=== PATIENT | female | born 1975 | race Caucasian/White ===

== ENCOUNTER 2021-06-24 15:17 | Emergency (ER) | payer BC ==
--- OUTSIDE RECORDS SUMMARY | 2021-06-24 15:20 | XMS REPORT | Continuity of Care Document ---
:1975 Author Organization [facility] t Address [address] [place] [address] Care Team Providers Name Role Phone Rosenda Borrero NP Primary Care Physician Marge RN, M Attending Clinician Unavailable Manolo DIASP Attending Clinician Unknown Attending Clinician Unavailable UNKNOWN Attending Clinician Unavailable BENNETT Attending Clinician Unavailable Bennett AGUIAR Attending Clinician Doctor Unassigned, Name Attending Clinician Unavailable Iftikhar AGUIAR Attending Clinician Singer COHN Attending Clinician Nurse, Urgent Care Attending Clinician Unavailable IFTIKHAR Attending Clinician Unavailable Referred Admitting Clinician Unavailable Payers Payer Name Policy Type Policy Number Effective Date Expiration Date Monty samuels [facility] [id number] 2020 00:00:00 SELECT Problems Condition Condition Condition Status Onset Resolution Last Treating Co mments Source Name Details Category Date Date Treatment Clinician Date No known No known Disease Unive rs active active ity of problems problems [facility] Allergies, Adverse Reactions, Alerts Allergy Allergy Status Severity Reaction(s) Onset Inactive Treating Comm ents Source Name Type Date Date Clinician No Known DA Active U 2019-0 [facility]ie 12-[facility] s 00:00: [address] No Known DA Active U 2020-0 [facility] Allergie 12-27 [place] s 00:00: [address] NO KNOWN Drug Active Univers ALLERGIE Class ity of S [facility] Social History Social Habit Start Date Stop Date Quantity Comments Source Exposure to Not sure [facility] SARS-CoV-2 (event) Medica l Branch Cigarettes smoked 2020-12-01 2020-12-01 [facility] current (pack per 00:00:00 00:00:00 Medical Branch day) - Reported Tobacco use and 2020-12-01 2020-12-01 Never used [facility] exposure 00:00:00 00:00:00 Medical Branch Sex Ass[birth year] [facility] 00:00:00 00:00:00 Medical Branch Smoking Status Start Date Stop Date Source Current every day smoker 2020-12-01 00:00:00 Uni versity [facility] Unknown if ever smoked [facility] Medications Ordered Filled Start Stop Current Ordering Indication Dosage Frequency Signature Comments Components Source Medication Medication Date Date Medication? Clinician (SIG) Name Name amoxicillin Yes TAKE ONE Un heriberto -clavulanat 7-19 (1) ity of e 875-125 00:00: TABLET(S) Nickolas as mg per 00 BY MOUTH Medical tablet TWICE A Branch DAY FOR 10 DAYS. fluticasone Yes INSTILL Uni vers propionate 7-19 TWO (2) ity of 50 00:00: SPRAY(S) [place] mcg/actuati 00 INTO EACH Med ical on nasal NOSTRIL Branch spray ONCE A DAY. amoxicillin Yes TAKE ONE Un heriberto -clavulanat 7-19 (1) ity of e 875-125 00:00: TABLET(S) Nickolas as mg per 00 BY MOUTH Medical tablet TWICE A Branch DAY FOR 10 DAYS. fluticasone Yes INSTILL Uni vers propionate 7-19 TWO (2) ity of 50 00:00: SPRAY(S) [place] mcg/actuati 00 INTO EACH Med ical on nasal NOSTRIL Branch spray ONCE A DAY. aspirin Yes Univers (ASPIR-LOW 7-16 ity of ORAL) 00:00: Medical Branch aspirin Yes Univers (ASPIR-LOW 7-16 ity of ORAL) 00:00: [place] [facility] aspirin 2021-0 Yes Univers (ASPIR-LOW 7-16 ity of ORAL) 00:00: Medical Branch aspirin 2020-0 Yes Univers (ASPIR-LOW 7-16 ity of ORAL) 00:00: Medical Branch aspirin 2020-0 Yes Univers (ASPIR-LOW 7-16 ity of ORAL) 00:00: 00 Medical Branch loratadine 2020-0 Yes 10mg Take 10 mg U nivers (CLARITIN) 5-04 by mouth. ity of 10 mg 00:00: [place] tablet 00 Medical Branch loratadine 2020-0 Yes 10mg Take 10 mg U nivers (CLARITIN) 5-04 by mouth. ity of 10 mg 00:00: [place] tablet 00 Medical Branch loratadine 2020-0 Yes 10mg Take 10 mg U nivers (CLARITIN) 5-04 by mouth. ity of 10 mg 00:00: [place] tablet 00 Medical Branch loratadine 2020-0 Yes 10mg Take 10 mg U nivers (CLARITIN) 5-04 by mouth. ity of 10 mg 00:00: [place] tablet 00 Medical Branch loratadine 2019-0 Yes 10mg Take 10 mg U nivers (CLARITIN) 5-04 by mouth. ity of 10 mg 00:00: [place] tablet 00 Medical [place] Vital Signs Vital Name Observation Time Observation Value Comments Source Systolic blood 2021-02-06 00:48:00 124 mm[Hg] Univer sity of pressure [facility] Diastolic blood 2021-02-06 00:48:00 80 [facility]Hg[facility] 2021-02-06 00:48:00 80 /min [facility] Body temperature 2021-02-06 00:48:00 36.78 Mitzi [facility] Respiratory rate 2021-02-06 00:48:00 18 /min [facility] Body weight 2021-02-06 00:48:00 91.627 kg [facility] Oxygen saturation in 2021-02-06 00:48:00 98 /min [facility] Arterial blood by [facility] Pulse oximetry Branch Systolic blood 2020-12-01 13:54:00 121 mm[Hg] Univer sity of [facility] Diastolic blood 2020-12-01 13:54:00 84 mm[Hg] Unive rsity of pressure [place] [facility] Heart rate 2020-12-01 13:54:00 81 /min [facility] [place] [facility] Body weight 2020-12-01 13:54:00 91.627 kg [facility]i ty [facility] [place] [facility] Oxygen saturation in 2020-12-01 13:54:00 99 /min University of Arterial blood by [facility] Pulse oximetry Branch Systolic blood 2020-11-07 04:00:00 124 mm[Hg] Univer sity of pressure [place] [facility] Diastolic blood 2020-11-07 04:00:00 85 mm[Hg] Unive rsity of pressure [place] [facility] Heart rate 2020-11-07 04:00:00 63 /min [facility] [place] [facility] Respiratory rate 2020-11-07 04:00:00 18 /min Univ ersity of [place] [facility] Oxygen saturation in 2020-11-07 04:00:00 97 /min University of Arterial blood by [facility] Pulse oximetry Branch Body temperature 2020-11-07 01:12:00 36.78 Mitzi Univ [facility] [place] [facility] Body weight 2020-11-07 01:12:00 92.08 kg [facility]i ty [facility] [place] [facility] Systolic blood 2020-11-07 01:06:00 154 mm[Hg] Univer sity of pressure [place] [facility] Diastolic blood 2020-11-07 01:06:00 92 mm[Hg] Unive rsity of pressure [place] [facility] Heart rate 2020-11-07 01:04:00 72 /min [facility] [place] [facility] Body temperature 2020-11-07 01:04:00 36.78 Mitzi Univ ers[facility] [place] [facility] Respiratory rate 2020-11-07 01:04:00 18 /min Univ ersity of [place] [facility] Oxygen saturation in 2020-11-07 01:04:00 100 /min University of Arterial blood by [facility] Pulse oximetry Branch Procedures Procedure Date / Time Performed Performing Clinician [facility] e CONSENT/REFUSAL FOR 2020-12-01 13:43:53 Doctor Unassigned, No Un [facility] DIAGNOSIS AND Name Medical Branch TREATMENT XR CHEST 1 VW 2020-11-07 03:18:00 Romario Pro o f [place] [facility] LIPASE 2020-11-07 02:52:00 Singer [facility] TROPONIN I 2020-11-07 02:52:00 Singer [facility] COMP. METABOLIC PANEL 2020-11-07 02:52:00 [facility] ([id number]) [facility] CBC WITH DIFF 2020-11-07 02:52:00 Singer [facility] N-TERMINAL PRO-BNP 2020-11-07 02:52:00 Romario Pro [facility] [place] [facility] y of [facility] NOTICE OF PRIVACY 2020-11-07 01:04:48 Doctor Unassigned, No Univ ers[facility] PRACTICES Name [facility] Branch CONSENT/REFUSAL FOR 2020-11-07 01:03:18 Doctor Unassigned, No [facility] DIAGNOSIS AND Name [facility] TREATMENT Encounters Start End Encounter Admission Attending Care Care Encounter Source Date/Time Date/Time Type Type Clinicians Facility Department ID 2021-02-23 Emergency [facility] [id number] Univers 08:33:41 [facility] 2019-12-28 Inpatient [facility] ER [id number] [facility] 12:54:00 [id number] [facility] 2021-02-06 2021-02-06 Telephone Shantal Bird [id number] Univers 00:00:00 00:00:00 SUZE [id number] it y of [facility] [id number] Nickolas as [phone] [place] [id number] Branch 2021-02-05 2021-02-05 Urgent Carmen French [facility] [id number] Univers 19:46:25 20:21:42 Care Unknown, Attending Health [id number] ity [facility] [id number] Nickolas as Abram?Blea [phone] Ri heydi landry [address] [place] [address] Medical Office Building 2021-02-05 2021-02-05 Outpatient [facility] [id number] Univers 20:00:00 20:00:00 [id number] ity [facility] 2021-02-05 2021-02-05 Outpatient R UNKNOWN, [facility] [id number] Univers 20:00:00 20:00:00 ATTENDING ity [facility] 2021-01-13 2021-01-13 Outpatient R BENNETT, [facility] [id number] Univers 13:00:00 13:00:00 KISHORE [id number] ity o [facility] [place] [facility] 2021-01-10 2021-01-10 Outpatient R [facility] [id number] Univers 14:00:00 14:00:00 [id number] ity [facility] 2021-01-10 2021-01-10 Outpatient R [facility] [id number] Univers 14:00:00 14:00:00 ity [facility] 2020-12-23 2020-12-23 Outpatient R BENNETT, [facility] [id number] Univers 14:20:00 14:20:00 KISHORE [id number] [facility] 2020-12-23 2020-12-23 Outpatient R BENNETT, [facility] [id number] Univers 14:20:00 14:20:00 MICHAELESAU [facility] 2020-12-01 2020-12-01 Office Bennett, [facility] [id number] Univers 08:45:16 09:08:01 Visit Kishore Herr [id number] ity [id number] [phone] [address] 2020-12-01 2020-12-01 Outpatient R BENNETT, [facility] [id number] Univers 08:40:00 08:40:00 KISHORE [id number] ity o [facility] [place] [facility] 2020-12-01 2020-12-01 Outpatient R BENNETT, [facility] [id number] Univers 08:40:00 08:40:00 [facility]ASH[facility]DA [facility] 2020-12-01 2020-12-01 Orders Doctor GAFFNEY [id number] Univers 00:00:00 00:00:00 Only Unassigned, SUZE [id number] ity of [place] [facility] [id number] Nickolas as [phone] [address] 2020-12-01 2020-12-01 Letter [facility] 1.2.840.114 [id number] Univers 00:00:00 00:00:00 (Out) Kishore Herr [id number] [id number] [id number] Ri dical nal 059 Branch Building 2020-11-06 2020-11-06 Emergency Iftikhar [facility] 1.2.840.114 [id number] Univers 20:09:00 23:59:00 ProRomario [id number] it[id number] [phone] [facility] 084 [place] 2020-11-06 2020-11-06 Nurse [facility] 1.2 .840.114 [id number] Univers 20:08:28 20:23:28 Visit Iftikhar Simone [facility] [id number] ity [facility] [id number] Nickolas as Professio [phone] [facility] 044 Branch Office Building One 2020-11-06 2020-11-06 Outpatient R IFTIKHAR [facility] [id number] Univers 20:00:00 20:00:00 SIMONE [facility] 2020-11-06 2020-11-06 Outpatient [facility] [id number] Univers 20:00:00 20:00:00 [id number] [facility] Results Test Description Test Time Test Comments Results Result Comments Source TROPONIN I 2020-11-07 03:39:40 Test Item Value Reference Range Interpretation Comme nts TROPONIN I (test code = 0.002 ng/mL See_Comment [Au tomated message] The [id number]) system which ge nerated this result tra nsmitted reference range : <=0.034. The reference r richard was not used to int erpret this result as normal/abnormal . ONOFRE (test code = ONOFRE) Reference (Normal) Range (defined by the 99th percentile reference limit): <= 0.034 ng/mL Note: Cardiac troponin begins to rise 3-4 hours after the onset of ischemia. Repeat in 4-6 hours if the sample was drawn within 3-4 hours of the onset of the symptom and found normal. Diagnosis of myocardial injury is made with acute changes in cTn concentrations with at least one serial sample above the 99th percentile upper reference limit (URL), taken together with the patient's clinical presentation. Biotin has been reported to cause a negative bias, interpret results relative to patient's use of biotin. Lab Interpretation Normal (test code = 55939-7) [id number] 03:36:24 Test Item Value Reference Range Interpretation Comments NT-proBNP (test code 92 pg/mL See_Comment [Autom ated = 1606030079) message] The system which generated this result transmitted reference range : <=125. The reference range was not used to interpret this result as normal/abnormal . ONOFRE (test code = ONOFRE) Biotin has been reported to cause a negative bias, interpret results relative to patient's use of biotin. Lab Interpretation Normal (test code = 83302-8) [facility] (59646)2020-11-07 03:30:00 Test Item Value Reference Range Interpretation Comments NA (test code = 137 mmol/L 135-145 7773125741) K (test code = 3.7 mmol/L 3.5-5.0 9220380097) CL (test code = 104 mmol/L 98-108 7303330105) CO2 TOTAL (test code 29 mmol/L 23-31 = 9398438738) AGAP (test code = 2-16 9306859820) BUN (test code = 18 mg/dL 7-23 6926895306) GLUCOSE (test code = 90 mg/dL 70-110 6215674067) CREATININE (test code 0.82 mg/dL 0.50-1.04 = 8131452690) TOTAL BILI (test code 0.4 mg/dL 0.1-1.1 = 0541622846) CALCIUM (test code = 9.5 mg/dL 8.6-10.6 8859289284) T PROTEIN (test code 7.1 g/dL 6.3-8.2 = 6152408048) ALBUMIN (test code = 4.3 g/dL 3.5-5.0 6007901842) ALK PHOS (test code = 53 U/L 34-122 2687143029) ALTv (test code = 20 U/L 5-35 1742-6) AST(SGOT) (test code 25 U/L 13-40 = 1676652865) eGFR (test code = mL/min/1.73m2 8054895046) ONOFRE (test code = ONOFRE) Association of Glomerular Filtration Rate (GFR) and Staging of Kidney Disease* + + +- +| GFR (mL/min/1.73 m2) ?| With Kidney Damage ?| ?Without Kidney Damage+ ------+ ----+ ------+| ?>90 ?| ?Stage one ?| ? Normal ?+ -+ + -+| ?60-89 ?| ?Stage two ?| ? Decreased GFR ? + + +- +| ?30-59 ?| ?Stage three ?| ? Stage three ? + + +- +| ?15-29 ?| ?Stage four ? | ? Stage four ?+ -+ + -+| ?<15 (or dialysis) ? ?| ?Stage five ? | ? Stage five ?+ -+ + -+ *Each stage assumes the associated GFR level has been in effect for at least three months. ?Stages 1 to 5, with or without kidney disease, indicate chronic kidney disease. Notes: Determination of stages one and two (with eGFR >59mL/min/1.73 m2) requires estimation of kidney damage for at least three months as defined by structural or functional abnormalities of the kidney, manifested by either:Pathological abnormalities or Markers of kidney damage (including abnormalities in the composition of the blood or urine or abnormalities in imaging tests). [facility] 03:29:40 Test Item Value Reference Range Interpretation Comments LIPASE (test code = 5846552496) 76 U/L 0-220 Lab Interpretation (test code = Normal 74060-1) General acute hospital WITH [id number] 03:17:40 Test Item Value Reference Range Interpretation Comments WBC (test code = See_Comment [Automated message] 6690-2) The system [employer] generated this result transmitted ref erence range: 4.30 - 1 1.10 10*3/?L. The re ference range was not u sed to interpret this result as normal/abnor mal. RBC (test code = See_Comment [Automated message] 789-8) The system [employer] generated this result transmitted ref erence range: 3.93 - 5 .25 10*6/?L. The re ference range was not u sed to interpret this result as normal/abnor mal. HGB (test code = 13.1 g/dL 11.6-15.0 718-7) HCT (test code = 39.4 % 35.7-45.2 4544-3) MCV (test code = 94.3 fL 80.6-95.5 787-2) MCH (test code = 31.3 pg 25.9-32.8 785-6) MCHC (test code = 33.2 g/dL 31.6-35.1 786-4) RDW-SD (test code 44.6 fL 39.0-49.9 = 19937-8) RDW-CV (test code 12.9 % 12.0-15.5 = 788-0) PLT (test code = See_Comment [Automated message] 777-3) The system [employer] generated this result transmitted ref erence range: 166 - 35 8 10*3/?L. The re ference range was not u sed to interpret this result as normal/abnor mal. MPV (test code = 12.2 fL 9.5-12.9 60069-6) NRBC/100 WBC (test See_Comment [Automat ed message] code = 3038856043) The syste m which generated this result transmitted ref erence range: 0.0 - 10 .0 /100 WBCs. The refer ence range was not u sed to interpret this result as normal/abnor mal. NRBC x10^3 (test <0.01 See_Comment [Automated message] code = 3602853965) The syste m which generated this result transmitted ref erence range: 10*3/?L. The reference range was not used to interpr et this result as normal/abnormal . GRAN MAT (NEUT) % 49.0 % (test code = 770-8) IMM GRAN % (test 0.30 % code = 2724952385) LYMPH % (test code 41.8 % = 736-9) MONO % (test code 6.4 % = 5905-5) EOS % (test code = 2.2 % 713-8) BASO % (test code 0.3 % = 706-2) GRAN MAT 3.11 10*3/uL 1.88-7.09 x10^3(ANC) (test code = 7863689418) IMM GRAN x10^3 <0.03 0.00-0.06 (test code = 9720047798) LYMPH x10^3 (test 2.66 10*3/uL 1.32-3.29 code = 731-0) MONO x10^3 (test 0.41 10*3/uL 0.33-0.92 code = 742-7) EOS x10^3 (test 0.14 10*3/uL 0.03-0.39 code = 711-2) BASO x10^3 (test <0.03 0.01-0.07 code = 704-7) [facility]- XR FOOT 3+V [id number] 14:00:00 Patient Name: PATY JEAN Unit No: [id number] EXAMS: CPT CODE: [id number] XR FOOT 3+[place] [address] Reason: L foot pain and swelling, R/O fob Indication: Foot pain FINDINGS: 3 views of the left foot do not demonstrate a fracture. No dislocation or radiopaque foreign body is identified. IMPRESSION: Negative at 1400 Reported and signed by:Matthew Gonzalez MD CC: Summer Hobbs EDGE TRIMMER; Carloz Rush MD Technologist: Satish BARAKAT Trscrpt Dt/ (1400)James Orig Print D/T: S: 12/28/2019 (1403) [place] NAME: PATY JEAN [address] [place] [address] PHYS: IRISDA. - Carloz Rush MD [address] : 1975AGE: 44 SEX: F [place], [place] [address] LOC: D.PER PHONE #: [phone] EXAM DATE: 12/28/2019 STATUS: REG ER FAX #: RAD NO: DC Dt: PAGE 1 Signed Report"
[2021-06-24] MEDS ORDERED: ACETAMINOPHEN 500 MG TAB ONE (16:09)
[2021-06-24] MEDS ORDERED: NA CHLORIDE 0.9% 1,000 ML ONE (16:50)
[2021-06-24] MEDS ORDERED: CLINDAMYCIN 600MG/D5W 600 MG/50 ML BAG IV ONE (17:06)
[2021-06-24 17:13] LABS: Protime INR 1.26
[2021-06-24 17:27] LABS: Absolute Lymphocytes (CBC) 0.4 K/uL (0.7-4.9); Hematocrit 38.9 % (36.0-45.0); Lymphocytes % 3.6 % (15.3-44.8); MPV 9.5 fL (7.6-11.3); RBC Red Blood Cell Count 4.22 M/uL (3.86-4.86)
[2021-06-24 17:29] LABS: Potassium 3.4 mmol/L (3.5-5.1)
[2021-06-24] MEDS ORDERED: POTASSIUM 25 MEQ EFFERV TAB ONE (17:46)
[2021-06-24 18:17] LABS: SARS-COV-2 RT PCR NEGATIVE (NEGATIVE)
--- NOTE | 2021-06-24 18:32 | EDPHYS ---
Physician Documentation [facility] Name: Courtney oJya Age: 46 yrs Sex: Female : 1975 Arrival Date: 06/24/2021 Time: 15:21 Bed 12 Private MD: ED Physician Jorje Pappas HPI: 06/24 16:05 This 46 yrs old Female presents to ER via Ambulatory with complaints of Fever. cp 16:05 The patient reports fever, with an emergency department temperature of 102.1 degrees cp Fahrenheit. 16:05 Onset: The symptoms/episode began/occurred today. Associated signs and symptoms: cp Pertinent positives: headache, body aches. 16:07 Patient reports son was diagnosed with influenza this past Tuesday. Patient reports cp redness, swelling to right suprapubic area after attempting to remove ingrown hair. 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 Pneumococcal vaccine is not up to date, Flu vaccine is not up to date. - Social history:: Smoking status: Patient reports the use of cigarette tobacco products, denies chronic smoking, but will smoke occasionally. ROS: 16:15 Constitutional: Positive for body aches, fever, Negative for chills. cp 16:15 ENT: Negative for drainage from ear(s), ear pain, sore throat, difficulty swallowing, cp difficulty handling secretions. 16:15 Cardiovascular: Negative for chest pain, palpitations. 16:15 Respiratory: Negative for cough, shortness of breath, wheezing. 16:15 Abdomen/GI: Negative for vomiting, diarrhea, constipation. 16:15 Skin: Positive for cellulitis, of the right suprapubic area. 16:15 Neuro: Positive for headache, Negative for altered mental status, weakness. 16:15 All other systems are negative. Exam: 16:30 Head/Face: Normocephalic, atraumatic. cp 16:30 Constitutional: The patient appears in no acute distress, alert, awake, non-toxic, well developed, well nourished. 16:30 Eyes: Periorbital structures: appear normal, Conjunctiva: normal, no exudate, no injection, Sclera: no appreciated abnormality, Lids and lashes: appear normal, bilaterally. 16:30 ENT: External ear(s): are unremarkable, Ear canal(s): are normal, clear, TM's: dullness, bilaterally, Nose: is normal, Mouth: Lips: moist, Oral mucosa: pink and intact, moist, Posterior pharynx: Airway: no evidence of obstruction, patent, Tonsils: no enlargement, no exudate, erythema, that is mild, exudate, is not appreciated. 16:30 Neck: ROM/movement: is normal, is supple, without pain, no range of motions limitations, no meningismus, Lymph nodes: no appreciated lymphadenopathy. 16:30 Chest/axilla: Inspection: normal. 16:30 Cardiovascular: Rate: tachycardic, Rhythm: regular. 16:30 Respiratory: the patient does not display signs of respiratory distress, Respirations: normal, no use of accessory muscles, no retractions, labored breathing, is not present, Breath sounds: are clear throughout, no decreased breath sounds, no stridor, no wheezing. 16:30 Abdomen/GI: Inspection: abdomen appears normal, Bowel sounds: active, all quadrants, Palpation: abdomen is soft and non-tender, in all quadrants. 16:30 Skin: abscess, not appreciated, cellulitis, that is moderate, irregular, on the right suprapubic area. 16:30 Neuro: Orientation: to person, place \\T\\ time. Mentation: is normal. Vital Signs: 15:47 BP 125 / 59; Pulse 102; Resp 16 S; Temp 102.1(TE); Pulse Ox 100% on R/A; Weight 92.99 jg9 kg (R); Height 5 ft. 5 in. (165.10 cm) (R); 16:45 Temp 101.5; jg9 18:39 BP 123 / 68; Pulse 96; Resp 17 S; Pulse Ox 96% on R/A; jg9 15:47 Body Mass Index 34.11 (92.99 kg, 165.10 cm) jg9 MDM: 16:11 Patient medically screened. cp 18:32 Data reviewed: vital signs, nurses notes, lab test result(s). cp 18:32 Differential diagnosis: viral Infection, bacterial infection, UTI, cellulitis, abscess. cp Counseling: I had a detailed discussion with the patient and/or guardian regarding: the historical points, exam findings, and any diagnostic results supporting the discharge/admit diagnosis, lab results, to return to the emergency department if symptoms worsen or persist or if there are any questions or concerns that arise at home. Response to treatment: the patient's symptoms have mildly improved after treatment, and as a result, I will discharge patient. 06/24 16:01 Order name: COVID-19/FLU A+B (Document "Date of Onset" if Symptomatic); Complete Time: cp 18:24 06/24 16:01 Order name: Urine Microscopic Only cp 06/24 16:45 Order name: CBC with Diff; Complete Time: 17:33 cp 06/24 17:33 Interpretation: Normal except: WBC 11.90; PLT 135; SHAMAR% 91.7; LYM% 3.6; NEUT A 10.9; cp LYMA 0.4. 06/24 16:45 Order name: BMP; Complete Time: 17:33 cp 06/24 17:34 Interpretation: Normal except: NA 134; K 3.4; GFR 65. cp 06/24 16:45 Order name: PT-INR; Complete Time: 17:33 cp 06/24 16:45 Order name: Procalcitonin; Complete Time: 18:24 cp 06/24 16:01 Order name: Urine Dipstick-Ancillary (obtain specimen); Complete Time: 18:40 cp 06/24 16:51 Order name: Wound Culture cp 06/24 18:39 Order name: Urine Dipstick-Ancillary; Complete Time: 18:47 EDMS Administered Medications: 16:11 Drug: Tylenol 1000 mg Route: PO; jg9 16:45 Follow up: Response: No adverse reaction; No change in condition; Temperature is jg9 unchanged 17:00 Drug: NS 0.9% 1000 ml Route: IV; Rate: 1 bolus; Site: left antecubital; jg9 18:11 Follow up: IV Status: Completed infusion; IV Intake: 1000ml jg9 17:11 Drug: Clindamycin 900 mg Route: IVPB; Infused Over: 30 mins; Site: left antecubital; jg9 18:12 Follow up: IV Status: Completed infusion; IV Intake: 50ml jg9 18:11 Drug: Potassium Effervescent Tablet 50 mEq Route: PO; jg9 18:12 Follow up: Response: No adverse reaction jg9 18:39 Follow up: Response: No adverse reaction jg9 Disposition Summary: 06/24/21 18:32 Discharge Ordered Location: Home cp Problem: new cp Symptoms: have improved cp Condition: Stable cp Diagnosis - Influenza due to unidentified influenza virus with other manifestations cp - Cellulitis of abdominal wall - right suprapubic area cp Followup: cp - With: Private Physician - When: 2 - 3 days - Reason: Recheck today's complaints Discharge Instructions: - Discharge Summary Sheet cp - Cellulitis, Adult cp - Influenza, Adult, [id number] cp - Form - Excuse from Work, School, or Physical Activity cp Forms: - Medication Reconciliation Form cp - Thank You Letter cp - Antibiotic Education cp - Prescription Opioid Use cp Prescriptions: - Clindamycin HCl 300 mg Oral Capsule - take 1 capsule by ORAL route every 6 hours for 10 days; 40 capsule; Refills: 0, cp Product Selection Permitted - Ibuprofen 800 mg Oral Tablet - take 1 tablet by ORAL route every 8 hours As needed take with food; 30 tablet; cp Refills: 0, Product Selection Permitted - Bactrim DS 800-160 mg Oral Tablet - take 1 tablet by ORAL route every 12 hours for 10 days; 20 tablet; Refills: 0, cp Product Selection Permitted - Tamiflu 75 mg Oral Capsule - take 1 tablet by ORAL route every 12 hours for 5 days; 10 tablet; Refills: 0, cp Product Selection Permitted Signatures: Dis[facility] Jovon Browne PA PA cp Deb Muñiz RN RN jg9 Corrections: (The following items were deleted from the chart) 06/25 03:20 03:16 Constitutional: The patient appears in no acute distress, alert, awake, cp non-toxic, well developed, well nourished, cp 03:20 03:16 Head/Face: Normocephalic, atraumatic. cp cp 03:20 03:16 Eyes: Periorbital structures: appear normal, Conjunctiva: normal, no exudate, no cp injection, Sclera: no appreciated abnormality, Lids and lashes: appear normal, bilaterally, cp 03:20 03:16 ENT: External ear(s): are unremarkable, Ear canal(s): are normal, clear, TM's: cp dullness, bilaterally, Nose: is normal, Mouth: Lips: moist, Oral mucosa: pink and intact, moist, Posterior pharynx: Airway: no evidence of obstruction, patent, Tonsils: no enlargement, no exudate, erythema, that is mild, exudate, is not appreciated, cp 03:20 03:16 Neck: ROM/movement: is normal, is supple, without pain, no range of motions cp limitations, no meningismus, Lymph nodes: no appreciated lymphadenopathy, cp :20 03:16 Chest/axilla: Inspection: normal, cp cp : 03:16 Cardiovascular: Rate: tachycardic, Rhythm: regular, cp cp : 03:16 Respiratory: the patient does not display signs of respiratory distress, cp Respirations: normal, no use of accessory muscles, no retractions, labored breathing, is not present, Breath sounds: are clear throughout, no decreased breath sounds, no stridor, no wheezing, cp : 03:16 Abdomen/GI: Inspection: abdomen appears normal, Bowel sounds: active, all cp quadrants, Palpation: abdomen is soft and non-tender, in all quadrants, cp : 03:16 Neuro: Orientation: to person, place \\T\\ time. Mentation: is normal, cp cp :20 03:16 Skin: abscess, not appreciated, cellulitis, that is moderate, irregular, on the cp right suprapubic area, cp 15:56 / 16:07 Patient reports son was diagnosed with influenza this past Tuesday. cp cp
--- NOTE | 2021-06-24 18:32 | ER ---
Nurse's Notes [facility] Name: Courtney Joya Age: 46 yrs Sex: Female : 1975 Arrival Date: 06/24/2021 Time: 15:21 Bed 12 Private MD: Diagnosis: Influenza due to unidentified influenza virus with other manifestations;Cellulitis of abdominal wall-right suprapubic area Presentation: 06/24 15:47 Chief complaint: Patient states: I was at my PCP because I was not feeling well \T\[id number] jg9 am, when I was there the doctor told me my heart rate was up and I had a fever, patient denied any concern for exposure to covid-patient reports her son currently has type B influenza. I also have an ingrown hair in my r groin area that is bothering me and I am susceptible to MRSA/STAPH. Coronavirus screen: Vaccine status: Patient reports receiving the 2nd dose of the covid vaccine. Patient reports being unvaccinated. Ebola Screen: Patient negative for fever greater than or equal to 101.5 degrees Fahrenheit, and additional compatible Ebola Virus Disease symptoms Patient denies exposure to infectious person. Patient denies travel to an Ebola-affected area in the 21 days before illness onset. Initial Sepsis Screen: Does the patient meet any 2 criteria? No. Patient's initial sepsis screen is negative. Does the patient have a suspected source of infection? No. Patient's initial sepsis screen is negative. Risk Assessment: Do you want to hurt yourself or someone else? Patient reports no desire to harm self or others. 15:47 Method Of Arrival: Ambulatory 9 15:47 Acuity: FRANNIE 3 jg9 15:54 Onset of symptoms was June 24, 2021 at 09:15. jg9 Triage Assessment: 15:52 General: Appears in no apparent distress. Behavior is calm, cooperative. Pain: jg9 Complains of pain in pelvis-r groin ingrown hair/boil Pain currently is 0 out of 10 on a pain scale. at worst was 9 out of 10 on a pain scale. 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 Pneumococcal vaccine is not up to date, Flu vaccine is not up to date. - Social history:: Smoking status: Patient reports the use of cigarette tobacco products, denies chronic smoking, but will smoke occasionally. Screenin:53 Abuse screen: Denies threats or abuse. Denies injuries from another. Nutritional jg9 screening: No deficits noted. Tuberculosis screening: No symptoms or risk factors identified. Fall Risk None identified. Vital Signs: 15:47 BP 125 / 59; Pulse 102; Resp 16 S; Temp 102.1(TE); Pulse Ox 100% on R/A; Weight 92.99 jg9 kg (R); Height 5 ft. 5 in. (165.10 cm) (R); 16:45 Temp 101.5; jg9 18:39 BP 123 / 68; Pulse 96; Resp 17 S; Pulse Ox 96% on R/A; jg9 15:47 Body Mass Index 34.11 (92.99 kg, 165.10 cm) jg9 ED Course: 15:21 Patient arrived in ED. ds1 15:51 Triage completed. jg9 15:53 Arm band placed on right wrist. jg9 16:00 Jovon Browne PA is PHCP. cp 16:00 Jorje Pappas MD is Attending Physician. cp 16:00 Patient has correct armband on for positive identification. jg9 16:04 Deb Muñiz, RN is Primary Nurse. jg9 16:50 Inserted saline lock: 22 gauge in left antecubital area, using aseptic technique. Blood jg9 collected. 18:40 No provider procedures requiring assistance completed. jg9 18:49 IV discontinued. jg9 Administered Medications: 16:11 Drug: Tylenol 1000 mg Route: PO; jg9 16:45 Follow up: Response: No adverse reaction; No change in condition; Temperature is jg9 unchanged 17:00 Drug: NS 0.9% 1000 ml Route: IV; Rate: 1 bolus; Site: left antecubital; jg9 18:11 Follow up: IV Status: Completed infusion; IV Intake: 1000ml jg9 17:11 Drug: Clindamycin 900 mg Route: IVPB; Infused Over: 30 mins; Site: left antecubital; jg9 18:12 Follow up: IV Status: Completed infusion; IV Intake: 50ml jg9 18:11 Drug: Potassium Effervescent Tablet 50 mEq Route: PO; jg9 18:12 Follow up: Response: No adverse reaction jg9 18:39 Follow up: Response: No adverse reaction jg9 Intake: 18:11 IV: 1000ml; Total: 1000ml. jg9 18:12 IV: 50ml; Total: 1050ml. jg9 Outcome: 18:32 Discharge ordered by . cp 18:49 Discharged to home ambulatory. jg9 18:49 Condition: improved 18:49 Discharge instructions given to patient, Instructed on discharge instructions, follow up and referral plans. Demonstrated understanding of instructions, follow-up care, Prescriptions given X 3. 18:49 Patient left the ED. jg9 Signatures: Miriam Cavazos ds1 Jovon Browne PA PA Deb Cameron RN RN jg9
[2021-06-24 18:39] LABS: Urine Blood 3+ (Negative); Urine Glucose Negative (Negative); Urine Protein Negative (Negative); Urine Specific Gravity 1.015 (1.005-1.030); Urine pH 5.5 (5.0-7.0)
[2021-06-24 19:19] VITALS: TEMP 101.5
[2021-06-24 19:20] VITALS: BP 123/68; O2SAT 96
[2021-06-24 19:24] LABS: Urine Bacteria <20 /HPF (<20); Urine RBC <5 /HPF (NONE SEEN)
== END 2021-06-24 18:49 | disposition home or self-care (01) ==
LOC: ER 15:17
DX: J11.1 Influenza due to unidentified influenza virus with other respiratory manifestations (principal); L03.311 Cellulitis of abdominal wall; F17.210 Nicotine dependence, cigarettes, uncomplicated; Z20.822 Contact with and (suspected) exposure to COVID-19
CPT/HCPCS: 96365; 87070; 85025; 80048; 36415; 87205; 85610; 87077; 87186; 84145; 0240U; 99284; J7030; 81003; 81015